=== PATIENT | female | born 1965 | race African-American/Black ===

== ENCOUNTER 2023-08-18 09:57 | Inpatient (IN) | payer OTHER ==
[~2023-08-18] VITALS: Ht 167.6 cm; Wt 68.9 kg
[2023-08-18 11:18] LABS: BASOPHILS % 0.4 % (0.0-2.0); EOSINOPHILS % 0.7 % (0.0-5.0); HEMATOCRIT. 45.4 % (36.0-48.0); LYMPHOCYTES % 12.3 % (20.0-50.0); MEAN CORPUSCULAR HEMOGLOBIN 31.6 pg (28.0-32.0); MEAN CORPUSCULAR HGB CONC 33.1 g/dL (31.0-37.0); MEAN CORPUSCULAR VOLUME 95.5 fL (81.0-99.0); MEAN PLATELET VOLUME 8.2 fl (7.4-10.4); MONOCYTES % 10.3 % (2.0-8.0); NEUTROPHILS % 76.3 % (40.0-76.0); PLATELET 269 x1000/uL (130-400); RED BLOOD CELL COUNT 4.75 mill/uL (4.2-5.4); RED CELL DISTRIBUTION WIDTH 15.5 % (11.6-14.6); WHITE BLOOD COUNT 9.7 x1000/uL (4.5-11.0)
[2023-08-18 11:42] LABS: ALANINE AMINOTRANSFERASE 24 IU/L (10-49); ASPARTATE AMINOTRANSFERASE 28 IU/L (<34); BILIRUBIN TOTAL 1.1 mg/dL (0.1-1.0); CALCIUM 8.6 mg/dL (8.7-10.4); CARBON DIOXIDE 25 mEq/L (21-32); CHLORIDE 102 mEq/L (98-107); CREATININE 0.6 mg/dL (0.6-1.0); GLUCOSE 93 mg/dL (70-105); POTASSIUM 3.7 mEq/L (3.5-5.1); PROTEIN TOTAL 6.3 g/dL (6.0-8.3); SODIUM 136 mEq/L (136-145); TROPONIN I HIGH SENSITIVITY 31 ng/L (3.0-34); UREA NITROGEN BLOOD 14 mg/dL (9-23)
[2023-08-18 11:58] LABS: ETHANOL BLOOD < 10 mg/dL (<10)
[2023-08-18 12:30] VITALS: BP 116/77; PULSE 95; RESP 16; RESP 18; TEMP 97.9
[2023-08-18] MEDS ORDERED: ONDANSETRON HCL 4MG/2ML INJ IV PRN (13:15)
[2023-08-18] MEDS ORDERED: DOCUSATE SODIUM 100MG CAPSULE PO PRN (13:15)
[2023-08-18] MEDS ORDERED: MAGNESIUM/ALUMINUM HYDROXIDE/SIMETHICONE 30ML UDC PO PRN (13:15)
[2023-08-18] MEDS ORDERED: CLONIDINE 0.1MG TABLET PO PRN (13:15)
[2023-08-18] MEDS ORDERED: DEXTROSE 50% WATER 50ML SYRINGE IV PRN (13:15)
[2023-08-18] MEDS ORDERED: GUAIFENESIN 200MG/10ML SUGAR FREE UDC PO PRN (13:15)
[2023-08-18] MEDS ORDERED: ACETAMINOPHEN 325MG TABLET PO PRN ×2 (13:15)
[2023-08-18] MEDS ORDERED: IPRATROPIUM/ALBUTEROL 0.5-3(2.5)MG/3ML NEB HHN PRN (13:15)
[2023-08-18] MEDS ORDERED: LORAZEPAM 2MG/ML INJ IV PRN (14:30)
[2023-08-18] MEDS: MAGNESIUM 1 G PREMIX 100 ML IV NR (15:52)
[2023-08-18] MEDS: LEVETIRACETAM 1,000 MG in SODIUM CHLORIDE 0.9% 100 ML IV NR (15:52)
[2023-08-18] MEDS: ENOXAPARIN 40MG/0.4ML SYR SUBCUT SCH (15:53)
[2023-08-18] MEDS: MVI, ADULT NO.1 10 ML, FOLIC ACID 1 MG, THIAMINE HCL 100 MG in SODIUM CHLORIDE 0.9% 1,0... IV SCH (15:54)
[2023-08-18 16:00] VITALS: BP 131/62; PULSE 102; RESP 20; TEMP 98
[2023-08-18] MEDS: BLOOD SUGAR DIAGNOSTIC STRIP TEST SCH (17:08)
[2023-08-18 17:42] LABS: AMMONIA 34 uMol/L (<32)
[2023-08-18 17:47] LABS: PHOSPHORUS 3.6 mg/dL (2.5-4.9)
[2023-08-18 17:49] LABS: CREATINE KINASE MB FRACTION 3.6 ng/mL (0.5-3.6); PHENYTOIN < 2.0 ug/mL (10-20)
[2023-08-18 17:50] LABS: CARBAMAZEPINE < 0.4 ug/mL (4-12); VALPROIC ACID < 3.0 ug/mL (50-100)
[2023-08-18] MEDS: LORAZEPAM 2MG/ML INJ IV NR (19:10)
[2023-08-18 20:00] VITALS: BP 103/62; PULSE 101; RESP 20; TEMP 97.4
[2023-08-18] MEDS: LACTULOSE 20G/30ML UDC PO SCH (20:00)
[2023-08-18] MEDS: FAMOTIDINE 20MG TABLET PO SCH (21:44)
[2023-08-18] MEDS: PHENYTOIN SODIUM 100MG/2ML VIAL IV SCH (21:45)
[2023-08-19] VITALS: BP 115/95; PULSE 93; RESP 18; TEMP 98.8
[2023-08-19 04:00] VITALS: BP 99/69; PULSE 87; RESP 20; TEMP 98.2
[2023-08-19 08:00] VITALS: BP 111/80; PULSE 95; RESP 18; TEMP 97.9
[2023-08-19 08:18] LABS: BASOPHILS % 0.5 % (0.0-2.0); EOSINOPHILS % 1.2 % (0.0-5.0); HEMATOCRIT. 40.8 % (36.0-48.0); HEMOGLOBIN. 13.6 g/dL (12.0-16.0); LYMPHOCYTES % 23.5 % (20.0-50.0); MEAN CORPUSCULAR HEMOGLOBIN 31.4 pg (28.0-32.0); MEAN CORPUSCULAR HGB CONC 33.3 g/dL (31.0-37.0); MEAN CORPUSCULAR VOLUME 94.5 fL (81.0-99.0); MEAN PLATELET VOLUME 7.9 fl (7.4-10.4); MONOCYTES % 13.9 % (2.0-8.0); NEUTROPHILS % 60.9 % (40.0-76.0); PLATELET 214 x1000/uL (130-400); RED BLOOD CELL COUNT 4.32 mill/uL (4.2-5.4); RED CELL DISTRIBUTION WIDTH 15.3 % (11.6-14.6)
[2023-08-19] MEDS: LEVETIRACETAM 500MG PREMIX 100 ML IV SCH (08:30)
[2023-08-19] MEDS: THIAMINE HCL 100MG TABLET PO SCH (08:31)
[2023-08-19] MEDS: MULTIVITAMINS,THER W-MINERALS TABLET PO SCH (08:31)
[2023-08-19] MEDS: FOLIC ACID 1MG TABLET PO SCH (08:31)
[2023-08-19 09:30] LABS: ALANINE AMINOTRANSFERASE 16 IU/L (10-49); ALBUMIN 3.2 g/dL (3.2-4.8); ASPARTATE AMINOTRANSFERASE 24 IU/L (<34); BILIRUBIN TOTAL 0.9 mg/dL (0.1-1.0); CALCIUM 8.2 mg/dL (8.7-10.4); CARBON DIOXIDE 23 mEq/L (21-32); CHLORIDE 106 mEq/L (98-107); CHOLESTEROL 160 mg/dL (<200); CREATINE KINASE 119 IU/L (34-145); CREATINE KINASE MB FRACTION 2.1 ng/mL (0.5-3.6); CREATININE 0.5 mg/dL (0.6-1.0); GLUCOSE 94 mg/dL (70-105); HDL CHOLESTEROL 64 mg/dL (>65); LDL CHOLESTEROL 87 mg/dL (5-100); POTASSIUM 3.7 mEq/L (3.5-5.1); PROTEIN TOTAL 5.2 g/dL (6.0-8.3); SODIUM 138 mEq/L (136-145); T4 FREE 0.99 ng/dL (0.89-1.76); THYROID STIMULATING HORMONE 0.19 uIU/mL (0.55-4.78); TRIGLYCERIDE 82 mg/dL (0-150); TROPONIN I HIGH SENSITIVITY 14 ng/L (3.0-34); UREA NITROGEN BLOOD 11 mg/dL (9-23)
[2023-08-19] MEDS: SODIUM CHLORIDE 0.9% 1,000 ML IV SCH (10:59)
[2023-08-19 12:00] VITALS: BP 103/74; PULSE 93; RESP 20; TEMP 98.9
[2023-08-19] MEDS: PIPERACILLIN/TAZO 3.375G/50ML 50 ML IV SCH (12:15)
[2023-08-19] MEDS: VANCOMYCIN 1.5GM/250ML IV NR (13:05)
[2023-08-19 15:37] LABS: CLARITY URINE CLEAR (CLEAR); COLOR URINE YELLOW (YELLOW); GLUCOSE URINE NEGATIVE (NEGATIVE); KETONES URINE NEGATIVE (NEGATIVE); LEUKOCYTE ESTERASE URINE 1+ (NEGATIVE); NITRITE URINE NEGATIVE (NEGATIVE); OCCULT BLOOD URINE NEGATIVE (NEGATIVE); PH URINE 5.5 (4.5-8.0); PROTEIN URINE NEGATIVE (NEGATIVE); SPECIFIC GRAVITY URINE 1.021 (1.005-1.030)
[2023-08-19 16:00] VITALS: BP 108/65; PULSE 102; RESP 20; TEMP 98.4
[2023-08-19 16:24] LABS: SQUAMOUS EPITHELIAL CELL URINE 1+ /lpf (RARE/1+)
[2023-08-19 16:25] LABS: BACTERIA URINE TRACE; RBC URINE 0-2 /hpf (0-2)
[2023-08-19 16:26] LABS: YEAST URINE NONE SEEN
[2023-08-19 17:00] LABS: *AMPHETAMINES SCREEN URINE NEGATIVE (NEGATIVE); *BARBITURATES SCREEN URINE NEGATIVE (NEGATIVE); *BENZODIAZEPINES SCREEN URINE NEGATIVE (NEGATIVE); *COCAINE SCREEN URINE PRESUMPTIVE POSITIVE (NEGATIVE); CANNABINOID URINE SCREEN NEGATIVE (NEGATIVE); ECSTASY MDMA SCREEN URINE NEGATIVE (NEGATIVE); METHADONE URINE SCREEN Neg (NEGATIVE); OPIATES URINE SCREEN NEGATIVE (NEGATIVE); PHENCYCLIDINE URINE SCREEN NEGATIVE (NEGATIVE)
[2023-08-19 20:00] VITALS: BP 101/68; PULSE 92; RESP 18; TEMP 98.2
[2023-08-19] MEDS: FAMOTIDINE 20MG TABLET PO SCH (20:48)
[2023-08-19 22:47] LABS: LACTIC ACID 2.9 mmol/L (0.4-2.0)
[2023-08-19 22:48] LABS: CREATINE KINASE MB FRACTION 1.3 ng/mL (0.5-3.6)
[2023-08-20] VITALS: BP 103/61; PULSE 89; RESP 18; TEMP 98.2
[2023-08-20] MEDS: VANCOMYCIN 750MG PREMIX 150 ML IV SCH (00:17)
[2023-08-20 03:48] LABS: HEMATOCRIT 39.5 % (36.0-48.0); MEAN CORPUSCULAR HEMOGLOBIN 31.2 pg (28.0-32.0); MEAN CORPUSCULAR VOLUME 94.4 fL (81.0-99.0); PLATELET 205 x1000/uL (130-400); RED BLOOD CELL COUNT 4.18 mill/uL (4.2-5.4); WHITE BLOOD COUNT 6.9 x1000/uL (4.5-11.0)
[2023-08-20 04:00] VITALS: BP 107/68; PULSE 83; RESP 21; TEMP 97.5
[2023-08-20 04:01] LABS: AMMONIA 21 uMol/L (<32)
[2023-08-20 04:02] LABS: ALANINE AMINOTRANSFERASE 13 IU/L (10-49); ALBUMIN 3.1 g/dL (3.2-4.8); ASPARTATE AMINOTRANSFERASE 17 IU/L (<34); BILIRUBIN TOTAL 0.5 mg/dL (0.1-1.0); CALCIUM 7.9 mg/dL (8.7-10.4); CARBON DIOXIDE 25 mEq/L (21-32); CHLORIDE 107 mEq/L (98-107); CREATININE 0.5 mg/dL (0.6-1.0); GLUCOSE 95 mg/dL (70-105); PHOSPHORUS 3.5 mg/dL (2.5-4.9); PROTEIN TOTAL 5.1 g/dL (6.0-8.3); SODIUM 138 mEq/L (136-145); UREA NITROGEN BLOOD 9 mg/dL (9-23)
[2023-08-20 08:00] VITALS: BP 106/65; PULSE 84; RESP 18; TEMP 98.1
[2023-08-20] MEDS: MAGNESIUM 2 G PREMIX 50 ML IV NR (09:46)
[2023-08-20 10:35] VITALS: BP 133/70; PULSE 88; TEMP 97.9; O2SAT 98
[2023-08-20 12:00] VITALS: BP 112/74; PULSE 80; RESP 18; TEMP 97.9
== END 2023-08-20 14:35 | disposition home or self-care (01) | DRG 53 ==
LOC: ER 09:57 → EDBD 10:59 → 8WST 10:59 → EDBEDREQ 11:03 → EDBEDREQTM 11:03
PROVIDERS: ADMIT Internal Medicine; ATTEND Internal Medicine
DX: G40.909 Epilepsy, unspecified, not intractable, without status epilepticus (principal); I47.20 Ventricular tachycardia, unspecified; Z59.00 Homelessness unspecified; F14.10 Cocaine abuse, uncomplicated; I10 Essential (primary) hypertension; J45.909 Unspecified asthma, uncomplicated; Z79.899 Other long term (current) drug therapy
CPT/HCPCS: 36415; 71045; 80053; 80061; 80156; 80165; 80185; 80305; 80320; 81003; 82140; 82542; 82550; 82553; 82962; 83036; 83605; 83735; 84100; 84145; 84439; 84443; 84484; 85025; 85027; 93005; 93306; 93970; 97162; 97166; 99285; J1165; J1650; J1953; J2060; J2543; J3370; J3411; J3475; J3490; J7030; J7050; G0480

== ENCOUNTER 2023-10-05 06:54 | Emergency (ER) | payer OTHER ==
[~2023-10-05] VITALS: Ht 167.6 cm; Wt 60.0 kg
[2023-10-05 07:01] VITALS: O2SAT 98
[2023-10-05] MEDS: BACITRACIN ZINC OINT UDPKT TOP ONE (08:30)
[2023-10-05 11:02] VITALS: BP 141/87; PULSE 85; RESP 16; TEMP 98.6
== END 2023-10-05 11:51 | disposition home or self-care (01) ==
LOC: ER 06:54
DX: S90.511A Abrasion, right ankle, initial encounter (principal); J45.909 Unspecified asthma, uncomplicated; I10 Essential (primary) hypertension; G40.909 Epilepsy, unspecified, not intractable, without status epilepticus; X58.XXXA Exposure to other specified factors, initial encounter; Y93.89 Activity, other specified; Y92.89 Other specified places as the place of occurrence of the external cause; Y99.8 Other external cause status
CPT/HCPCS: 73610; 81025; 82962; 99283

== ENCOUNTER 2023-10-19 08:34 | Emergency (ER) | payer OTHER ==
[~2023-10-19] VITALS: Ht 157.5 cm; Wt 58.0 kg
[2023-10-19 08:36] VITALS: TEMP 98.1; O2SAT 97
[2023-10-19] MEDS: LEVETIRACETAM 500MG PREMIX 100 ML IV ONE (09:21)
[2023-10-19 09:32] LABS: BASOPHILS % 0.8 % (0.0-2.0); EOSINOPHILS % 0.9 % (0.0-5.0); HEMATOCRIT. 42.4 % (36.0-48.0); HEMOGLOBIN. 14.1 g/dL (12.0-16.0); MEAN CORPUSCULAR HEMOGLOBIN 33.1 pg (28.0-32.0); MEAN CORPUSCULAR HGB CONC 33.2 g/dL (31.0-37.0); MEAN CORPUSCULAR VOLUME 99.6 fL (81.0-99.0); MEAN PLATELET VOLUME 7.4 fl (7.4-10.4); MONOCYTES % 7.7 % (2.0-8.0); NEUTROPHILS % 75.6 % (40.0-76.0); PLATELET 319 x1000/uL (130-400); RED BLOOD CELL COUNT 4.25 mill/uL (4.2-5.4); RED CELL DISTRIBUTION WIDTH 15.9 % (11.6-14.6); WHITE BLOOD COUNT 5.1 x1000/uL (4.5-11.0)
[2023-10-19 09:56] LABS: CARBON DIOXIDE 24 mEq/L (21-32)
[2023-10-19 10:01] LABS: CREATININE 0.7 mg/dL (0.6-1.0); GLUCOSE 95 mg/dL (70-105); TROPONIN I HIGH SENSITIVITY 18 ng/L (3.0-34)
[2023-10-19 10:03] LABS: ALANINE AMINOTRANSFERASE 8 IU/L (10-49); ALBUMIN 3.9 g/dL (3.2-4.8); ASPARTATE AMINOTRANSFERASE 24 IU/L (<34); BILIRUBIN TOTAL 0.8 mg/dL (0.1-1.0); PROTEIN TOTAL 6.6 g/dL (6.0-8.3)
[2023-10-19 10:04] LABS: ETHANOL BLOOD < 10 mg/dL (<10); UREA NITROGEN BLOOD < 5 mg/dL (9-23)
[2023-10-19 11:07] LABS: CHLORIDE 106 mEq/L (98-107); SODIUM 137 mEq/L (136-145)
[2023-10-19 11:08] LABS: CALCIUM 9.4 mg/dL (8.7-10.4)
[2023-10-19 12:38] VITALS: BP 103/68; PULSE 82; RESP 16
== END 2023-10-19 13:21 | disposition short-term general hospital (02) ==
LOC: ER 08:34 → CANBEDREQ 11:10 → ER 13:21 → CANBEDREQ 10-21 21:02
DX: R41.82 Altered mental status, unspecified (principal); J45.909 Unspecified asthma, uncomplicated; I10 Essential (primary) hypertension; F14.90 Cocaine use, unspecified, uncomplicated; F19.90 Other psychoactive substance use, unspecified, uncomplicated
CPT/HCPCS: 80053; 80320; 83605; 85025; 84484; 36415; 84145; 71045; 70450; 96365; 99285; J1953; Z7610; G0480